=== PATIENT | male | born 1945 | race Caucasian/White ===

== ENCOUNTER 2017-09-14 05:35 | Outpatient (CLI) | payer MEDICARE ==
[~2017-09-14] VITALS: Ht 185.4 cm; Wt 88.5 kg
[2017-09-14] MEDS ORDERED: ASPI-586 PO (13:20)
[2017-09-14] MEDS ORDERED: CARV12.53 PO (13:20)
[2017-09-18] MEDS ORDERED: HYDR-3812 PO (11:50)
== END 2017-09-14 13:23 ==
LOC: PREOP 05:35 → EDUNIT# 09:30 → PREOP 13:23
PROVIDERS: ATTEND Otolaryngology Otolaryngology/Facial Plastic Surgery
DX: Z01.818 Encounter for other preprocedural examination (principal)